=== PATIENT | female | born 1960 | race Caucasian/White ===

== ENCOUNTER 2016-06-30 09:32 | Emergency (ER) | payer OTHER ==
[~2016-06-30] VITALS: Ht 165.1 cm; Wt 70.5 kg
[2016-06-30 09:37] VITALS: BP 119/74; PULSE 89; RESP 22; O2SAT 99
--- NOTE | 2016-06-30 09:52 | ED.REPORT ---
HPI-Chest Pain 40 and Over Date of Service Jun 30, 2016 ED Provider: Maria Fernanda Cyr MD 55 year old female who is an every day smoker and regular marijuana user with a history of Negrete's esophagus and high cholesterol presents to the ER accompanied by her complaining of four days of persistent sharp substernal chest pain. Associated symptoms include SOB, nausea, vomiting, chills , diaphoresis, and mild nasal congestion. Today she awakened with worsening symptoms which is the cause for her ER visit. reports that the patient was visibly worse this morning, doubled over in pain and crying. She was seen initially by her PCP who prescribed phenergan with no relief. Patient denies any significant cardiac history. She takes six 10mg Methadone daily. Nursing Notes Stated Complaint: CHEST PAINS/NAUSEA Chief Complaint: Chest Pain Nursing Notes Reviewed: Yes Allergies: Coded Allergies: No Known Allergies (Unverified , 06/30/16) General Time Seen by MD: 09:41 Chief Complaint Chest pain Hx Obtained From: Patient, Spouse Arrived By: Walk-in Sudden in Onset?: No Onset Occurred: 4 days ago Symptom Duration: Since onset Location: : Substernal Quality: Stabbing Radiation: : Does not radiate Severity: Current: Moderate Severity: Maximum: Moderate Associated with: Reports: Diaphoresis, Nausea, Shortness of Breath, Vomiting Context Related History: Denies: Congestive heart failure, Myocardial infarction Recent Healthcare: Recent doctor visit Similar Sx Previous: No Past Medical History Past Medical History Negrete's esophagus High cholesterol Reports: Thyroid disease Smoking History Current Every Day Smoker Social History Drug Use: THC Other Social History: Good social support, Ambulatory Status Independent Review of Systems Constitutional: Reports: Chills, Denies: Fever Respiratory: Reports: Shortness of breath, Denies: Non-productive cough Cardiovascular: Reports: Chest pain GI: Reports: Nausea, Vomiting, Denies: Abdominal pain Musculoskeletal: Denies: Back pain, Extremity pain, Neck pain Skin: Reports Diaphoresis Complete sys rev & neg: except as marked. Ears / Nose / Throat: Reports: Nasal congestion Physical Exam Initial Vital Signs Vital Signs (First) Date Time Temp Pulse Resp B/P Pulse Ox O2 Delivery O2 Flow Rate FiO2 06/30/16 09:37 36.7 89 22 119/74 99 Room Air Initial VS: Reviewed Head / Eyes: Atraumatic, Normocephalic Neck: Supple, Non-tender, Full range of motion Extremities: Vascular intact, Neuro intact, No swelling, No tenderness Skin: Warm, Dry, No cyanosis Neurologic: Alert, Oriented, Nonfocal General/Constitutional: Awake, Alert, Well developed, Well nourished Behavior: Positive: Tearful Emotionally distraught. Respiratory / Chest: Breath sounds NL, Breath sounds = bilat, No respiratory distress, No rales, No rhonchi, No wheezing, No stridor, No chest tenderness Cardiovascular: Heart rate NL, Regular rhythm, Heart sounds NL, No murmurs, Peripheral circulation NL, Pulses = bilaterally, No gross BP differential Abdomen: Soft, Non-tender, No guarding, No rebound, No distention Interpretation & Diagnostics Lab Results Interpretation Result Diagram: 06/30/16 1025 06/30/16 1025 Test 06/30/16 10:25 06/30/16 13:45 White Blood Count 10.3th/mm3 (3.8-10.1) Red Blood Count 4.55mil/mm3 (3.90-5.20) Hemoglobin 14.1g/dL (12.0-15.6) Hematocrit 41.2% (35.0-46.0) Mean Corpuscular Volume 90.5fL (81-100) Mean Corpuscular Hemoglobin 31.0pg (27.0-35.0) Mean Corpuscular Hemoglobin Concent 34.2% (32.0-37.0) Red Cell Distribution Width 14.0% (12.3-15.4) Platelet Count 131bil/L (150-400) Neutrophils (%) (Auto) 79.7% (40-74) Lymphocytes (%) (Auto) 11.9% (14-46) Monocytes (%) (Auto) 7.9% (4-12) Eosinophils (%) (Auto) 0.1% (0-5) Basophils (%) (Auto) 0.2% (0-3) Sodium Level 136mEq/L (134-144) Potassium Level 4.4mEq/L (3.5-5.2) Chloride Level 98mEq/L (97-108) Carbon Dioxide Level 26mmol/L (18-29) Blood Urea Nitrogen 13mg/dL (6-24) Creatinine 0.51mg/dL (0.57-1.00) Estimat Glomerular Filtration Rate 179mL/min (>59) Glucose Level 92mg/dL (60-99) Calcium Level 9.1mg/dL (8.5-10.1) Magnesium Level 1.9mg/dL (1.6-2.6) Total Bilirubin 0.3mg/dL (0.0-1.2) Aspartate Amino Transf (AST/SGOT) 27U/L (0-50) Alanine Aminotransferase (ALT/SGPT) 13U/L (0-32) Alkaline Phosphatase 57U/L (25-150) Total Protein 6.2g/dL (6.4-8.4) Albumin 4.0g/dL (3.4-5.0) Hold Verde Top Tube Received (Received) Troponin T < 0.010ug/L (0.0-0.011) ECG Interpretation Time: 10:31 Interpreted by: ED physician Normal ECG Interpretation: Normal rate, Normal sinus rhythm, No acute ischemic changes, Normal QRS, Normal axis, Normal intervals, No change from prior ECGs, Adequate tracing X-Ray Chest Interpretation Chest Xray Interpretation: Normal. View: Portable, 1 view Interpretation / Wet Read by: Wet read ED physician, Interpret - Radiologist Re-Eval/Medical Decision Source of Hx: Old records Time of Eval: 13:59 Re-Evaluation/Progress Note: Patient continues to be tearful and anxious during the examination. Discussed lab and radiology results and plan for discharge pending repeat troponin test. Patient is amenable to the plan. Counseled Regarding: Diagnosis, Lab results, Need for follow-up, When/why to return to ED Discharge & Departure Primary Impression: Pleuritic chest pain Additional Impressions: Nausea Upper respiratory infection Depression Disposition: Home Discharge Condition All VS Reviewed: Yes Condition: Stable Additional Instructions: Your workup today was reassuring. I do not believe that there is any dangerous or life-threatening cause for your symptoms at this time. This pain does NOT seem to be due to your heart. Take 400-600mg ibuprofen every 4-6 hours as needed for pain. Use Zofran as directed for nausea. 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 Please talk to your PCP about your depression to make sure you are treating it fully ( you aren't yet...) Return to the ER if you develop uncontrollable chest pain, radiation of pain into your shoulders/arms or neck/jaw, shortness of breath, sweating, high fever , or any other concerning symptoms. Thank you for letting me evaluate you today. I hope you feel better Referrals: Michelle Seaman Attestation Portions of this note were transcribed by Eric Stringer. I, Dr. Cyr, personally performed the history, physical exam and medical decision-making; I reviewed and confirmed the accuracy of the information in the transcribed note. Signed by: Lita Teixeira, 06/30/2016 and 14:05 copies to: Michelle Seaman Shawna L MD Jun 30, 2016 09:52 ERIC STRINGER Jun 30, 2016 09:55
[2016-06-30 10:31] VITALS: BP 152/50; PULSE 84; RESP 18; O2SAT 99
[2016-06-30 10:42] LABS: BASOPHILS % (AUTO) 0.2 % (0-3); EOSINOPHILS % (AUTO) 0.1 % (0-5); MONOCYTES % (AUTO) 7.9 % (4-12); Mean Corpuscular Volume 90.5 fL (81-100); NEUTROPHILS % (AUTO) 79.7 % (40-74); Platelet Count 131 bil/L (150-400)
[2016-06-30 11:06] LABS: TROPONIN T 0.01 ug/L (0.0-0.011)
[2016-06-30 11:17] LABS: Magnesium 1.9 mg/dL (1.6-2.6)
[2016-06-30 13:23] VITALS: BP 103/64; PULSE 72; RESP 16; O2SAT 98
[2016-06-30] MEDS ORDERED: ONDA8TAB10 PO (15:10)
[2016-06-30 15:21] VITALS: BP 107/58; PULSE 78; RESP 16; O2SAT 94
[2016-06-30 15:27] VITALS: BP 107/58; PULSE 78; RESP 16; O2SAT 94
--- NOTE | 2016-07-06 14:43 | DRSVH ---
PROCEDURE: X-RAY CHEST ONE VIEW, PORTABLE ([id number]) INDICATIONS: chest pain TECHNIQUE: One view of the chest was acquired. COMPARISON: None. FINDINGS: Surgical changes and devices: Suture anchor in the right humeral head. Lungs and pleura: No pleural effusions or pneumothorax. Lungs are clear. Mediastinum: Mediastinal contours appear normal. Heart size is normal. Bones and chest wall: No suspicious bony lesions. Overlying soft tissues appear unremarkable. IMPRESSION: No acute cardiopulmonary disease process. Dictated by: Melissa Lara MD, PhD on 06/30/2016 at 10:13 Approved by: Melissa Lara MD, PhD on 06/30/2016 at 10:14
== END 2016-06-30 15:06 | disposition home or self-care (01) ==
LOC: SED 09:32
DX: R07.81 Pleurodynia (principal); R11.0 Nausea; J06.9 Acute upper respiratory infection, unspecified; F32.9 Major depressive disorder, single episode, unspecified; K22.70 Barrett's esophagus without dysplasia; E78.5 Hyperlipidemia, unspecified; E07.9 Disorder of thyroid, unspecified; F12.20 Cannabis dependence, uncomplicated; F17.200 Nicotine dependence, unspecified, uncomplicated; Z79.891 Long term (current) use of opiate analgesic

== ENCOUNTER 2016-08-15 09:23 | Emergency (ER) | payer OTHER ==
[~2016-08-15] VITALS: Ht 165.1 cm; Wt 68.2 kg
[~2016-08-15 09:23] MED LIST: ONDA8TAB10 PO
[2016-08-15 09:26] VITALS: BP 154/100; PULSE 96; RESP 24; O2SAT 100
--- NOTE | 2016-08-15 09:44 | ED.REPORT ---
HPI-Chest Pain 40 and Over Date of Service Aug 15, 2016 ED Provider: Rufino Alcocer MD This is a 55 year old female with a history of pleurisy, Negrete's esophagus, hyperlipidemia, who is an every day THC user presenting to the emergency department due to sudden onset mid-sternal chest pain that began 2 hours ago upon awakening. Chest is described as tender and sore. Associated with shortness of breath and non-productive cough. Also associated with low back pain that radiates down the leg and up the back. Denies nausea, vomiting, fever , chills, rhinorrhea, abdominal pain, sore throat, dysuria, incontinence, numbness or tingling in extremities, or hemoptysis. Pt seen in the ED one month ago with similar presentation, diagnosed with pleurisy and discharged. Pt takes methadone daily. Nursing Notes Stated Complaint: CHEST PAIN Chief Complaint: Chest Pain-Non Cardiac Nature Nursing Notes Reviewed: Yes Allergies: Coded Allergies: No Known Allergies (Unverified , 06/30/16) Scheduled Ondansetron ODT (Ondansetron ODT) 8 Mg Tab.rapdis 8 MG PO BID Prednisone (PredniSONE) 20 Mg Tablet 40 MG PO DAILY Scheduled PRN Cyclobenzaprine (Cyclobenzaprine) 5 Mg Tablet 5 MG PO HS PRN PRN Spasm Ibuprofen (Ibuprofen) 800 Mg Tablet 800 MG PO TID PRN PRN For Pain General Time Seen by MD: 09:34 Chief Complaint Chest aching Hx Obtained From: Patient Arrived By: Walk-in Sudden in Onset?: Yes Onset Occurred: 1 - 4 hours ago Symptom Duration: Since onset Severity: Current: Moderate Pertinent Negative: Pt denies other symptoms Recent Healthcare: Recent doctor visit Similar Sx Previous: Yes Past Medical History Past Medical History Negrete's esophagus High cholesterol Reports: Thyroid disease Past Surgical History Hip replacement Smoking History Current Every Day Smoker Social History Drug Use: THC Other Social History: Good social support, Ambulatory Status Independent Review of Systems Constitutional: Denies: Chills, Fever Respiratory: Reports: Non-productive cough, Shortness of breath Cardiovascular: Reports: Chest pain GI: Denies: Abdominal pain, Nausea, Vomiting Musculoskeletal: Reports: Back pain, Extremity pain Neurologic: Denies: Headache Complete sys rev & neg: except as marked. Physical Exam Initial Vital Signs Vital Signs (First) Date Time Temp Pulse Resp B/P Pulse Ox O2 Delivery O2 Flow Rate FiO2 08/15/16 09:26 36.1 96 24 154/100 100 Room Air Initial VS: Reviewed Head / Eyes: Atraumatic, Normocephalic, PERRL ENT: Mucous membranes moist, Conjunctiva normal, No scleral icterus Neck: Supple, Non-tender, Full range of motion Extremities: Vascular intact, Neuro intact, No swelling, No tenderness Skin: Warm, Dry, No cyanosis Neurologic: Alert, Oriented, Nonfocal Psychiatric: Mood/affect normal, Behavior normal, Normal thought content General/Constitutional: Awake, Alert Respiratory / Chest: Breath sounds NL, Breath sounds = bilat, No respiratory distress, No rales, No rhonchi, No wheezing, No stridor, No chest tenderness Cardiovascular: Heart rate NL, Regular rhythm, Heart sounds NL, No murmurs, Peripheral circulation NL, Pulses = bilaterally, No gross BP differential Abdomen: Soft, Non-tender, McBurney's non-tender, No guarding, No rebound, BS normoactive, No distention, No hernia, No palpable mass Back: No midline vertebral tend, No paraspinal tenderness Reproducible tenderness at right lower back Interpretation & Diagnostics Lab Results Interpretation Result Diagram: 08/15/16 0949 08/15/16 0949 Test 08/15/16 09:49 08/15/16 11:52 White Blood Count 10.8th/mm3 (3.8-10.1) Red Blood Count 4.91mil/mm3 (3.90-5.20) Hemoglobin 15.0g/dL (12.0-15.6) Hematocrit 44.6% (35.0-46.0) Mean Corpuscular Volume 90.8fL (81-100) Mean Corpuscular Hemoglobin 30.5pg (27.0-35.0) Mean Corpuscular Hemoglobin Concent 33.6% (32.0-37.0) Red Cell Distribution Width 14.0% (12.3-15.4) Platelet Count 128bil/L (150-400) Neutrophils (%) (Auto) 79.9% (40-74) Lymphocytes (%) (Auto) 10.3% (14-46) Monocytes (%) (Auto) 9.4% (4-12) Eosinophils (%) (Auto) 0.1% (0-5) Basophils (%) (Auto) 0.1% (0-3) D-Dimer 1.32mg/L FEU (<0.50) Sodium Level 139mEq/L (134-144) Potassium Level 3.4mEq/L (3.5-5.2) Chloride Level 100mEq/L (97-108) Carbon Dioxide Level 21mmol/L (18-29) Blood Urea Nitrogen 11mg/dL (6-24) Creatinine 0.60mg/dL (0.57-1.00) Estimat Glomerular Filtration Rate 149mL/min (>59) Glucose Level 134mg/dL (60-99) Calcium Level 10.1mg/dL (8.5-10.1) Magnesium Level 1.7mg/dL (1.6-2.6) Total Bilirubin 0.3mg/dL (0.0-1.2) Aspartate Amino Transf (AST/SGOT) 20U/L (0-50) Alanine Aminotransferase (ALT/SGPT) 11U/L (0-32) Alkaline Phosphatase 68U/L (25-150) Troponin T 0.010ug/L (0.0-0.011) Total Protein 7.4g/dL (6.4-8.4) Albumin 4.4g/dL (3.4-5.0) Hold Urine Received (Received) ECG Interpretation ECG Interpretation: SR at a rate of [address] changes Time: 10:52 Interpreted by: ED physician X-Ray Chest Interpretation Chest Xray Interpretation: IMPRESSION: Stable chest. No acute cardiopulmonary process is suspected. Dictated by: Chad Weeks M.D. on 08/15/2016 at 9:53 Approved by: Chad Weeks M.D. on 08/15/2016 at 9:54 Re-Eval/Medical Decision Med Decision/Clinical Course 55-year-old female with chronic low back pain and history of pleurisy presenting with chest pain and low back pain. She feels like her chest pain is similar to her pleurisy. She is more concerned about her low back pain which is left lower she has no red flag symptoms. Her urine is negative for infection. Her labs are stable. CT scan showed chest no PE. Troponins are negative. Patient was given Toradol and felt much better from a pain standpoint. The pain is reproducible therefore likely musculoskeletal. She does report radiation cannot rule out sciatica though her straight leg raise is negative. Given she has no red flag symptoms and a normal neurological exam and her chest pain workup is normal that she is stable for discharge home. Discussed the patient and she agrees with plan to return if any new or worsening symptoms. Time of Eval: 12:53 Re-Evaluation/Progress Note: Discussed plan for discharge, all questions addressed. Counseled Regarding: Diagnosis, Lab results, Need for follow-up, When/why to return to ED Discharge & Departure Primary Impression: Non-cardiac chest pain Additional Impression: Low back pain Chronicity: unspecified Back pain laterality: unspecified Sciatica presence : unspecified whether sciatica present Qualified Code: M54.5 - Low back pain Disposition: Home Discharge Condition All VS Reviewed: Yes Condition: Stable Additional Instructions: Thank you for seeking care in the emergency department today. Your workup was reassuring. Continue your medications, follow up with your primary care provider. Return to the emergency department with any new or worsening symptoms. Referrals: Michelle Seaman (PCP) Scribe Attestation Portions of this note were transcribed by Kelly Gonzales. I, Dr. Alcocer personally performed the history, physical exam and medical decision-making; I reviewed and confirmed the accuracy of the information in the transcribed note. Signed by Lita Jarrett, 08/15/2016 at 18:00. Rufino Alcocer MD Aug 15, 2016 09:44 KELLY GONZALES Aug 15, 2016 09:47
[2016-08-15] MEDS ORDERED: POLY10DR3 OP (09:52)
[2016-08-15 10:15] LABS: BASOPHILS % (AUTO) 0.1 % (0-3); EOSINOPHILS % (AUTO) 0.1 % (0-5); MONOCYTES % (AUTO) 9.4 % (4-12); Mean Corpuscular Hemoglobin 30.5 pg (27.0-35.0); Mean Corpuscular Volume 90.8 fL (81-100); NEUTROPHILS % (AUTO) 79.9 % (40-74); Platelet Count 128 bil/L (150-400)
[2016-08-15 10:28] LABS: TROPONIN T 0.01 ug/L (0.0-0.011)
[2016-08-15 10:39] LABS: Magnesium 1.7 mg/dL (1.6-2.6)
--- NOTE | 2016-08-15 10:55 | DRSVH ---
PROCEDURE: X-RAY CHEST ONE VIEW, PORTABLE ([id number]) INDICATIONS: chest pain TECHNIQUE: One view of the chest was acquired. COMPARISON: [facility], CR, XR CHEST 1VW (PORTABLE), 06/30/2016, 9:58. FINDINGS: Surgical changes and devices: Surgical changes are present involving the right shoulder, suggesting p rior rotator cuff repair. Lungs and pleura: No pleural effusions or pneumothorax. Lungs are clear. Mediastinum: Mediastinal contours appear normal. Heart size is normal. Bones and chest wall: No suspicious bony lesions. Overlying soft tissues appear unremarkable. IMPRESSION: Stable chest. No acute cardiopulmonary process is suspected. Dictated by: Chad Weeks M.D. on 08/15/2016 at 9:53 Approved by: Chad Weeks M.D. on 08/15/2016 at 9:54
[2016-08-15] MEDS ORDERED: LORazepam 0.5 mg Tablet PO ONE (11:00)
[2016-08-15] MEDS ORDERED: Ondansetron 2 mg/mL 2 mL Inj ONE (12:16)
[2016-08-15 12:26] VITALS: BP 146/85; PULSE 92; RESP 20; O2SAT 98
--- NOTE | 2016-08-15 12:27 | DRSVH ---
PROCEDURE: CT ANGIO CHEST PULMONARY EMBOLISM ([id number]) INDICATIONS: r/o pe elevated ddimer cp TECHNIQUE: After the administration of intravenous contrast, 2 mm thick sections acquired from the pulmonary api cherelle to the posterior costophrenic angles. 3-dimensional maximum intensity projection (MIP) coronal a nd sagittal reformats were then acquired through the thorax. For radiation dose reduction, the follo wing was used: automated exposure control, adjustment of mA and/or kV according to patient size. COMPARISON: [facility], CR, XR CHEST 1VW (PORTABLE), 08/15/2016, 10:20. FINDINGS: Image quality: Excellent. Pulmonary arteries: Pulmonary arteries are normal in size, and demonstrate no intraluminal filling d efects to suggest central pulmonary embolism. Lungs and pleura: Lungs are clear. No pleural effusions or pneumothorax. Central and peripheral ai rways are patent. Mediastinum: Heart size is normal, without pericardial effusion. No mediastinal or hilar adenopathy . Thoracic aorta is normal in caliber and enhancement. Esophagus is normal in caliber, without hiat al hernia. Bones and chest wall: No suspicious bony lesions. Ribs and thoracic spine appear intact throughout. Thyroid gland appears slightly prominent in size. Clinical correlation needed to confirm or rule ou t this. No axillary or supraclavicular adenopathy. Abdomen: Visualized upper abdominal solid organs appear normal in the early arterial phase of enhanc ement. IMPRESSION: 1. No evidence for pulmonary embolus is seen. No abnormality is appreciated of the thoracic aorta or great vessels arising from it. 2. Lungs are clear of infiltrates masses and effusions. No adenopathy. 3. Cause of central chest pain is not identified. Dictated by: Owen George M.D. on 08/15/2016 at 12:20 Approved by: Owen George M.D. on 08/15/2016 at 12:25
[2016-08-15] MEDS ORDERED: Ondansetron 2 mg/mL 2 mL Inj IVPUSH PRN (12:35)
[2016-08-15] MEDS ORDERED: CYCL5TAB PO (13:11)
[2016-08-15] MEDS ORDERED: IBUP800T28 PO (13:11)
[2016-08-15] MEDS ORDERED: PRE20 PO (13:11)
[2016-08-15 13:29] VITALS: BP 153/88; PULSE 86; RESP 16; O2SAT 100
[2016-08-16] MEDS ORDERED: OXYC1TAB24 PO (01:38)
[2016-08-16] MEDS ORDERED: OMEP20TA86 PO (01:39)
[2016-08-16] MEDS ORDERED: ONDA8TAB10 PO (01:39)
== END 2016-08-15 13:37 | disposition home or self-care (01) ==
LOC: SED 09:23
DX: R07.89 Other chest pain (principal); M54.5 Low back pain; F17.200 Nicotine dependence, unspecified, uncomplicated
CPT/HCPCS: 36415; 71010; 71275; 80053; 83735; 84484; 85025; 85378; 93005; 96374; 96375; 96376; 99285; J1885; J2270; J2405; Q9967

== ENCOUNTER 2016-08-15 21:03 | Emergency (ER) | payer OTHER ==
[~2016-08-15] VITALS: Ht 165.1 cm; Wt 68.2 kg
[~2016-08-15 21:03] MED LIST changes: +CYCL5TAB PO; +IBUP800T28 PO; +POLY10DR3 OP; +PRE20 PO
[2016-08-15 21:06] VITALS: BP 174/113; PULSE 118; RESP 25; O2SAT 98
--- NOTE | 2016-08-15 21:29 | ED.REPORT ---
HPI-Back Pain 40 and Over Date of Service Aug 15, 2016 ED Provider: Dr. Ji Reinoso M.D. A 55 year old female with a history of Negrete's esophagus, thyroid disease, hyperlipidemia, and pleurisy presents to the ED with right-sided lower back pain onset this morning, upon awakening. The pain radiates up and across her back as well as down her right leg, affecting her ambulation. Associated symptoms include nausea, vomiting, and chest pain, described as "burning" in nature - as if the patient is "on fire." The patient denies numbness, tingling, weakness, bowel incontinence, urinary incontinence, recent injury/trauma, or other symptoms. She took Zofran x2 today with no relief of her nausea. The patient was seen in the ED earlier today with similar symptoms, was given a full work-up including a negative chest CT, and was discharged after medication with Toradol, which relieved her pain. The patient uses THC and takes methadone daily. Nursing Notes Stated Complaint: BACK PAIN Chief Complaint: Back Pain or Injury Nursing Notes Reviewed: Yes Allergies: Coded Allergies: No Known Allergies (Unverified , 06/30/16) Scheduled Omeprazole (Omeprazole) 20 Mg Tablet.dr 20 MG PO BID Ondansetron ODT (Ondansetron ODT) 8 Mg Tab.rapdis 8 MG PO BID Prednisone (PredniSONE) 20 Mg Tablet 40 MG PO DAILY Scheduled PRN Cyclobenzaprine (Cyclobenzaprine) 5 Mg Tablet 5 MG PO HS PRN PRN Spasm Ibuprofen (Ibuprofen) 800 Mg Tablet 800 MG PO TID PRN PRN For Pain Ondansetron ODT (Ondansetron ODT) 8 Mg Tab.rapdis 8 MG PO QID PRN PRN For Nausea oxyCODONE-Acetaminophen 5-325 mg (oxyCODONE-Acetaminophen 5-325 mg) 1 Each Tablet 1-2 TAB PO [id number] PRN PRN For Pain General Time Seen by MD: 21:28 Chief Complaint Lumbar pain Hx Obtained From: Patient Arrived By: Walk-in Sudden in Onset?: Yes Onset Occurred: 9 - 12 hours ago Symptom Duration: Since onset Caused by: Spontaneous/no mechanism Location: : Perispinal lumbar (and chest) Quality: Burning, Painful Radiation: : Left leg above knee Severity: Current: Severe Severity: Maximum: Severe Associated with: Reports: Chest pain, Nausea, Vomiting, Denies: Incontinence bladder, Incontinence bowel, Numbness both low ext, Tingling left lower ext, Tingling right lower ext, Weakness both lower ext Recent Healthcare: Recent doctor visit, Recent testing, Prior workup Similar Sx Previous: Yes Past Medical History Past Medical History Negrete's esophagus Hyperlipidemia Pleurisy Thyroid disease Right shoulder fracture Reports: Thyroid disease Past Surgical History Right hip replacement Smoking History Current Every Day Smoker Social History Daily methadone - as of 08/15/16 Drug Use: THC (Daily) Other Social History: Good social support, Ambulatory Status Independent Review of Systems Review of Systems Note: - Tingling, recent injury/trauma Constitutional: Denies: Fever Respiratory: Denies: Non-productive cough, Shortness of breath Cardiovascular: Reports: Chest pain GI: Reports: Nausea, Vomiting, Denies: Diarrhea Female: Denies: Incontinence Musculoskeletal: Reports: Back pain (Right-sided, lower), Extremity pain ( Right leg ) Neurologic: Reports: Problem walking, Denies: Bladder dysfunction, Bowel dysfunction, Numbness Complete sys rev & neg: except as marked. Physical Exam Initial Vital Signs Vital Signs (First) Date Time Temp Pulse Resp B/P Pulse Ox O2 Delivery O2 Flow Rate FiO2 08/15/16 21:06 36.3 118 25 174/113 98 08/15/16 22:26 Room Air Initial VS: Reviewed Head / Eyes: Atraumatic, Normocephalic Skin: Warm, Dry, No cyanosis General/Constitutional: Awake, Alert Behavior: Positive: Tearful Appearance / Presentation: Positive: In pain Patient is crying and screaming in pain but can orient and answer questions when directed Respiratory / Chest: Breath sounds NL, Breath sounds = bilat, No respiratory distress Cardiovascular: Heart rate NL, Regular rhythm, Heart sounds NL Abdomen: Soft, Non-tender Back: Atraumatic Flank / Spine / Paraspinal: Positive: Lumbar paraspinal tend... (Right) Neurologic: Oriented X3, Speech NL, No motor deficits, No sensory deficits Interpretation & Diagnostics CT LUMBAR SPINE: CONCLUSION: No CT evidence of fracture or dislocation. Transmitted to the ED by radiologist Juan Pablo Gunter M.D. at 08/16/16 - 12:10: 54 AM PDT Lab Results Interpretation Result Diagram: 08/15/16215608/15/[id number] Test 08/15/16 21:57 White Blood Count 10.0th/mm3 (3.8-10.1) Red Blood Count 4.90mil/mm3 (3.90-5.20) Hemoglobin 15.2g/dL (12.0-15.6) Hematocrit 44.0% (35.0-46.0) Mean Corpuscular Volume 89.8fL (81-100) Mean Corpuscular Hemoglobin 31.0pg (27.0-35.0) Mean Corpuscular Hemoglobin Concent 34.5% (32.0-37.0) Red Cell Distribution Width 13.7% (12.3-15.4) Platelet Count 164bil/L (150-400) Neutrophils (%) (Auto) 92.5% (40-74) Lymphocytes (%) (Auto) 5.1% (14-46) Monocytes (%) (Auto) 2.1% (4-12) Eosinophils (%) (Auto) 0% (0-5) Basophils (%) (Auto) 0.1% (0-3) Erythrocyte Sedimentation Rate 7mm/hr (0-40) Prothrombin Time 10.0sec (8.1-12.5) Prothromb Time International Ratio 0.94ratio Activated Partial Thromboplast Time 27.3sec (22.8-33.0) D-Dimer 1.32mg/L FEU (<0.50) Sodium Level 137mEq/L (134-144) Potassium Level 3.7mEq/L (3.5-5.2) Chloride Level 98mEq/L (97-108) Carbon Dioxide Level 18mmol/L (18-29) Blood Urea Nitrogen 8mg/dL (6-24) Creatinine 0.61mg/dL (0.57-1.00) Estimat Glomerular Filtration Rate 146mL/min (>59) Glucose Level 184mg/dL (60-99) Calcium Level 10.4mg/dL (8.5-10.1) Magnesium Level 1.5mg/dL (1.6-2.6) Total Bilirubin 0.5mg/dL (0.0-1.2) Aspartate Amino Transf (AST/SGOT) 21U/L (0-50) Alanine Aminotransferase (ALT/SGPT) 12U/L (0-32) Alkaline Phosphatase 71U/L (25-150) Troponin T 0.010ug/L (0.0-0.011) Pro-B-Type Natriuretic Peptide 322.2pg/mL (0-287) Total Protein 7.6g/dL (6.4-8.4) Albumin 4.5g/dL (3.4-5.0) Hold Verde Top Tube Received (Received) ECG Interpretation ECG Interpretation: Sinus rhythm rate 97 Left atrial enlargement Prolonged QT interval Time: 22:33 Interpreted by: ED physician Re-Eval/Medical Decision Med Decision/Clinical Course 55-year-old with severe sciatic pain. She presents a second time after evaluation more centered on her chest pain. He continues to have chest pain which does not feature in her story today. She does acknowledge it on questioning. She is improved finally with IV morphine. She has chronic methadone that she has not taken for about twenty-four hours. She was given an 10 mg dose from her own supply. At this point, with a negative CT of the lumbar spine, a prior negative CTA, and no indication of any other serious pathology including no metastatic disease and no acute compression fracture or other bony compromise, she is discharged home with Percocet for breakthrough pain relief, Ativan as a muscle relaxer, and plan to follow up with her PCP as soon as possible. In the meantime, she had hesitated to take the prescribed proton pump inhibitor for her known Negrete's esophagus. It was emphasized that this was necessary to avoid continued damage and possible stimulation of cancer developing. She was represcribed Prilosec 20 mg by mouth twice a day, and agrees to take that. Source of Hx: Old records Re-Evaluation/Progress #1: Time of Eval: 23:09 Patient Status: Condition improved, Pain improved Re-Evaluation/Progress Note: Discussed with patient lab results and plan for CT. Re-Evaluation/Progress #2: Time of Eval: 01:25 Patient Status: Condition improved Re-Evaluation/Progress Note: Discussed with patient lab and CT results, diagnosis, and plan for discharge. Follow-up and return to the ER instructions given. Patient agrees with plan for care and all questions were addressed. Counseled Regarding: Diagnosis, Lab results, Need for follow-up, When/why to return to ED Discharge & Departure Shift Change Sign-Out Response to Therapy: Improved Impression: Primary Impression: Sciatica Laterality: right Qualified Code: M54.31 - Sciatica, right side Additional Impressions: Low back pain Chronicity: acute Back pain laterality: right Sciatica presence: with sciatica Sciatica laterality: sciatica of right side Qualified Code: M54.41 - Lumbago with sciatica, right side Barretts esophagus Disposition: Home Discharge Condition All VS Reviewed: Yes Condition: Improved Patient Instructions: Sciatica (ED) Additional Instructions: Begin Prilosec twice daily as directed. You may use Percocet one or two tablets every four hours as needed for pain, in addition to your baseline methadone. Do not take additional Percocet if you are sedated. Ativan three times daily as needed for spasm. Again do not take additional Ativan if you are sedated. Call your doctor this morning for follow-up early this week. Return if you develop numbness, weakness, or bowel or bladder incontinence. Referrals: Michelle Seaman (PCP) [employer] Portions of this note were transcribed by Nany Skinner. I, Dr. Reinoso, personally performed the history, physical exam, and medical decision-making; I reviewed and confirmed the accuracy of the information in the transcribed note. Signed by: Lita Wolfe, 08/16/2016, 02:45 copies to: Michelle Seaman Christopher W MD Aug 15, 2016 21:28 NANY SKINNER Aug 15, 2016 21:35
[2016-08-15] MEDS ORDERED: 0.9% Sodium Chloride 1,000 ML IV ONE (21:35)
[2016-08-15] MEDS ORDERED: Dexamethasone Inj 10 MG in 0.9% Sodium Chloride-Pha MIX 50 ML IV ONE (21:35)
[2016-08-15] MEDS ORDERED: Pantoprazole 4 mg/mL 10 mL Inj IVPUSH ONE (21:35)
[2016-08-15 22:09] LABS: BASOPHILS % (AUTO) 0.1 % (0-3); EOSINOPHILS % (AUTO) 0 % (0-5); MONOCYTES % (AUTO) 2.1 % (4-12); Mean Corpuscular Volume 89.8 fL (81-100); NEUTROPHILS % (AUTO) 92.5 % (40-74); Platelet Count 164 bil/L (150-400)
[2016-08-15 22:26] VITALS: BP 168/103; PULSE 101; RESP 17; O2SAT 95
[2016-08-15 22:27] LABS: D-Dimer 1.32 mg/L FEU (<0.50); INR 0.94 ratio
[2016-08-15 22:30] LABS: TROPONIN T 0.01 ug/L (0.0-0.011)
[2016-08-15 22:41] LABS: Magnesium 1.5 mg/dL (1.6-2.6)
[2016-08-15] MEDS ORDERED: Ondansetron 2 mg/mL 2 mL Inj IVPUSH ONE (23:00)
[2016-08-16] MEDS ORDERED: _LORazepam 2 MG Tablet PO SCH (01:35)
[2016-08-16] MEDS ORDERED: _Ondansetron ODT 4 mg Tablet PO PRN (01:35)
[2016-08-16] MEDS ORDERED: _oxyCODONE/APAP 5-325 mg Tablet PO PRN (01:35)
[2016-08-16] MEDS ORDERED: OXYC1TAB24 PO (01:38)
[2016-08-16] MEDS ORDERED: ONDA8TAB10 PO (01:39)
[2016-08-16] MEDS ORDERED: OMEP20TA86 PO (01:39)
[2016-08-16 02:09] VITALS: BP 138/85; PULSE 109; RESP 16; O2SAT 96
--- NOTE | 2016-08-16 08:30 | DRSVH ---
PROCEDURE: CT LUMBAR SPINE WITHOUT CONTRAST ([id number]) INDICATIONS: elevated d dimer, chest, back pain, r/o dissection TECHNIQUE: Noncontrast 3 mm thick sections acquired from the T12 level to the sacrum. Sagittal and coronal refo rmats were constructed. For radiation dose reduction, the following was used: automated exposure co ntrol. COMPARISON: None. FINDINGS: Image quality: Excellent. Bones: There is normal bony alignment. There is multilevel osteophytosis and endplate sclerosis. No acute vertebral body compression fractures. No suspicious lytic or blastic bony lesions. Central sp inal caliber is of normal overall caliber. No pars defects. T12-L1: Moderate disc desiccation and height loss. Broad-based disc bulge. Moderate facet and ligamen jacob flavum hypertrophy. No canal stenosis. No foraminal narrowing. L1-L2: Severe disc desiccation and height loss. Vacuum disc phenomenon. Disc bulge. Mild facet and li gamentum flavum hypertrophy. No canal stenosis. No foraminal stenosis. L2-L3: Severe disc desiccation and height loss. Vacuum disc phenomenon. Broad-based disc bulge. Mild facet and ligamentum flavum hypertrophy. No canal stenosis. No neural foraminal narrowing. L3-L4: Severe disc desiccation and height loss. Vacuum disc phenomenon. Broad-based disc bulge. Moder ate facet and ligamentum flavum hypertrophy. No canal stenosis. No foraminal stenosis. L4-L5: Severe disc desiccation height loss. Vacuum disc phenomenon. Broad-based disc bulge. Moderate facet and ligamentum flavum hypertrophy. Mild canal stenosis. Mild bilateral foraminal narrowing. L5-S1: Severe disc desiccation and height loss. Vacuum disc phenomenon. Broad-based disc bulge. Moder ate facet sclerosis. No canal stenosis. Mild bilateral foraminal narrowing. Soft tissues: No retroperitoneal masses or hematomas. Visualized aorta is normal in caliber. IMPRESSION: 1. Moderate to severe degenerative change of the lumbar spine including osteophytosis, endplate scler osis, and multilevel severe distance ccation, height loss, and vacuum disc phenomenon. 2. Mild to moderate facet ligamentum flavum hypertrophy with resultant mild canal stenosis at L4-5. N o other canal stenosis of the lumbar spine. 3. Mild bilateral foraminal narrowing at L4-5 and L5-S1. 4. No acute wedge compression deformities or other fractures of the lumbar spine. Note: The preliminary [facility] interpretation and the final report are concordant. Dictated by: Jenifer Amos M.D. on 08/16/2016 at 8:23 Approved by: Jenifer Amos M.D. on 08/16/2016 at 8:29
== END 2016-08-16 02:09 | disposition home or self-care (01) ==
LOC: SED 21:03
DX: M54.41 Lumbago with sciatica, right side (principal); K22.70 Barrett's esophagus without dysplasia; E78.5 Hyperlipidemia, unspecified; E07.9 Disorder of thyroid, unspecified; R09.1 Pleurisy; F17.200 Nicotine dependence, unspecified, uncomplicated; F12.10 Cannabis abuse, uncomplicated; Z96.641 Presence of right artificial hip joint; Z79.52 Long term (current) use of systemic steroids
CPT/HCPCS: 36415; 72131; 80053; 83735; 83880; 84484; 85025; 85378; 85610; 85651; 85730; 93005; 96361; 96374; 96375; 99285; J1100; J2060; J2270; J2405; J7030